=== PATIENT | female | born 1945 | race Caucasian/White ===

== ENCOUNTER 2016-11-08 16:54 | Emergency (ER) | payer MEDICARE ==
[~2016-11-08 16:54] MED LIST: ACETAMINOPHEN325 MG PO; AMITIZA8 MCG PO; ASPIRIN CHEWABL81 MG PO; BACLOFEN 20MG T20 MG PO; CARAFATE1 GM PO; CERTAGEN1 EACH PO; CETIRIZINE HCL10 MG PO; DIFLUCAN150 MG PO; FEOSOL325 MG PO; HABITROL21 MG TD; IBUPROFEN800 MG PO; KLONOPIN0.5 MG PO; LAXATIVE5 MG PO; NEURONTIN300 MG PO; PAXIL40 MG PO; PERCOCET 5-3251 EACH PO; PREDNISONE 5MG T5 MG PO; TENORMIN50 MG PO; XARELTO10 MG PO; ZANTAC150 MG PO
[2016-11-08 22:15] LABS: BASOPHIL 0.4 % (0-2); EOSINOPHIL 2.5 % (0-7); HGB 11.7 g/dl (12.5-16.0); LYMPHOCYTE 26.2 % (15-48); MCH 29.2 pg (25.0-31.0); MCHC 32.5 g/dL (32.0-36.0); MCV 89.8 fL (78.0-100.0); MONOCYTE 5.5 % (0-12); MPV 9.5 fL (6.0-9.5); NEUTROPHIL 65.4 % (41-80); PLT 385 K/uL (150-400); RBC 4.01 M/uL (4.20-5.40); RDW 14.3 % (11.5-14.0)
[2016-11-08 22:18] LABS: BILIRUBIN NEGATIVE (NEGATIVE); BLOOD TRACE-INTACT Ery/uL (NEGATIVE); CLARITY CLEAR (CLEAR); COLOR YELLOW (YELLOW); GLUCOSE (U) NORMAL (NORMAL); KETONE (U) NEGATIVE (NEGATIVE); LEUKOCYTES NEGATIVE Leu/uL (NEGATIVE); NITRITE NEGATIVE (NEGATIVE); PROTEIN NEGATIVE (NEGATIVE); SPECIFIC GRAVITY <=1.005 (1.001-1.030); UROBILINOGEN 0.2 mg/dL (0.2-1.0); pH 6.5 (5.0-9.0)
[2016-11-08 22:37] LABS: CREATININE 0.7 mg/dL (0.5-1.0)
== END 2016-11-08 23:17 | disposition home or self-care (01) ==
LOC: FER 16:54
PROVIDERS: Emergency Medicine Emergency Medical Services
DX: S22.029A Unspecified fracture of second thoracic vertebra, initial encounter for closed fracture (principal); M41.9 Scoliosis, unspecified; M47.816 Spondylosis without myelopathy or radiculopathy, lumbar region; M54.2 Cervicalgia; M25.552 Pain in left hip; I10 Essential (primary) hypertension; J45.909 Unspecified asthma, uncomplicated; J44.9 Chronic obstructive pulmonary disease, unspecified; F17.200 Nicotine dependence, unspecified, uncomplicated; Z88.0 Allergy status to penicillin; Z88.1 Allergy status to other antibiotic agents; Z79.82 Long term (current) use of aspirin; Z79.51 Long term (current) use of inhaled steroids; Z79.52 Long term (current) use of systemic steroids; Z79.899 Other long term (current) drug therapy; Z96.649 Presence of unspecified artificial hip joint; W18.39XA Other fall on same level, initial encounter; Y92.009 Unspecified place in unspecified non-institutional (private) residence as the place of occurrence of the external cause
CPT/HCPCS: 36415; 70450; 72110; 72125; 72128; 72131; 72220; 73502; 80048; 81003; 85025; J1100; J1170; J1885

== ENCOUNTER 2020-10-06 18:24 | Emergency (ER) | payer OTHER ==
[~2020-10-06 18:24] MED LIST changes: +AMLODIPINE-BEN1 EACH PO; +ANORO ELLIPTA1 EACH IN; +CLOBETASOL EMOL15 GM TOP; +CYMBALTA 30MG C30 MG PO; +DUONEB 2.5-0.5M1 AMP INH; +DUONEB 2.5-0.5M1 AMP NEB; +IMDUR 30MG TABL30 MG PO; +ISOSORBIDE MONO60 MG PO; +K-DUR20 MEQ PO; +LEVAQUIN500 MG PO; +LEVAQUIN750 MG PO; +LEVOFLOXAC750 MG/150 IV; +LEXAPRO20 MG PO; +MEDROL 4MG DOSEP4 MG PO; +METRO IV 5500 MG/100 IV; +NEURONTIN400 MG PO; +NITROQUIK SL0.4 MG SL; +NORCO 5-325 TA1 EACH PO; +PERCOCET 7.5/321 TAB PO; +PREDNISONE 20MG20 MG PO; +PREDNISONE5 MG PO; +PRILOSEC20 MG PO; +PROZAC20 MG PO; +TRAZODONE 100M100 MG PO; +TURMERIC500 M1 PO; +VENTOLIN HFA IN18 GM INH; +VITAMIN B-121000 MC1 PO; +ZPAK PO
[2020-10-06 19:32] LABS: BASOPHIL 0.8 % (0-2); EOSINOPHIL 1.1 % (0-7); HCT 37.7 % (37.0-47.0); HGB 12.2 g/dl (12.5-16.0); LYMPHOCYTE 31.7 % (15-48); MCH 30.8 pg (25.0-31.0); MCHC 32.4 g/dL (32.0-36.0); MCV 95.2 fL (78.0-100.0); MONOCYTE 4.5 % (0-12); MPV 10.3 fL (6.0-9.5); NEUTROPHIL 61.6 % (41-80); NRBC 0; PLT 320 K/uL (150-400); RBC 3.96 M/uL (4.20-5.40); RDW 14.3 % (11.5-14.0)
[2020-10-06 19:45] LABS: ALBUMIN 3.3 g/dL (3.4-5.0); BILIRUBIN - TOTAL 0.2 mg/dL (0.2-1.0); BUN/CREAT RATIO (CALC) 21.8 RATIO; CREATININE 0.78 mg/dL (0.51-0.95); GLOBULIN (CALCULATION) 2.6 g/dL; POTASSIUM 3.6 mmol/L (3.5-5.1); TOTAL PROTEIN 5.9 g/dL (6.4-8.2)
[2020-10-06 19:50] LABS: LACTIC ACID 1.8 mmol/L (0.4-1.9)
[2020-10-06 19:52] LABS: PRO-BNP 221 pg/mL (<450)
[2020-10-06 20:34] LABS: CORONAVIRUS 2019 SARS-COV-2 NEGATIVE (NEGATIVE); INFLUENZA A NAA NEGATIVE (NEGATIVE)
[2020-10-06] MEDS ORDERED: MEDROL 4MG DOSEP4 MG PO (22:36)
[2020-10-06] MEDS ORDERED: NARCAN4 MG (22:36)
[2020-10-06] MEDS ORDERED: LEVAQUIN500 MG PO (22:36)
== END 2020-10-06 22:55 | disposition home or self-care (01) ==
LOC: FER 18:24
PROVIDERS: Emergency Medicine Emergency Medical Services
DX: R07.89 Other chest pain (principal); R09.02 Hypoxemia; R42 Dizziness and giddiness; J44.9 Chronic obstructive pulmonary disease, unspecified; F17.210 Nicotine dependence, cigarettes, uncomplicated; Z87.01 Personal history of pneumonia (recurrent); Z88.1 Allergy status to other antibiotic agents; Z88.8 Allergy status to other drugs, medicaments and biological substances; Z88.0 Allergy status to penicillin; Z20.822 Contact with and (suspected) exposure to COVID-19
CPT/HCPCS: 36415; 36600; 70450; 71045; 71275; 80053; 82803; 83605; 83880; 84145; 84484; 85025; 85379; 87040; 93005; 94640; 94664; J1170; J1956; J2310; J2405; J2930; J7030; Q9967; U0002

== ENCOUNTER 2022-02-09 07:23 | Inpatient (IN) | payer MEDICARE ==
[~2022-02-09] VITALS: Ht 160 cm; Wt 81.0 kg
[~2022-02-09 07:23] MED LIST changes: -ASPIRIN CHEWABL81 MG PO; +ASPIRIN EC81 M1 PO; +KLONOPIN1 MG PO; +NARCAN4 MG
[2022-02-09 07:48] LABS: BASOPHIL 0.6 % (0-2); EOSINOPHIL 1.1 % (0-7); HCT 40.2 % (37.0-47.0); HGB 12.6 g/dl (12.5-16.0); LYMPHOCYTE 35.9 % (15-48); MCH 29.2 pg (25.0-31.0); MCHC 31.3 g/dL (32.0-36.0); MCV 93.1 fL (78.0-100.0); MONOCYTE 4.9 % (0-12); NEUTROPHIL 56.9 % (41-80); NRBC 0; PLT 281 K/uL (150-400); RBC 4.32 M/uL (4.20-5.40); RDW 14.6 % (11.5-14.0); WBC 11.3 K/uL (4.0-10.5)
[2022-02-09 07:54] LABS: INR 0.9 (0.9-1.2); PROTHROMBIN TIME 11.9 SECONDS (11.9-13.9)
[2022-02-09 08:04] LABS: ALBUMIN 3.1 g/dL (3.4-5.0); BILIRUBIN - TOTAL 0.1 mg/dL (0.2-1.0); BUN/CREAT RATIO (CALC) 12.7 RATIO; CREATININE 0.71 mg/dL (0.51-0.95); GLOBULIN (CALCULATION) 3.1 g/dL; POTASSIUM 3.1 mmol/L (3.5-5.1); TOTAL PROTEIN 6.2 g/dL (6.4-8.2)
[2022-02-09 08:58] LABS: CORONAVIRUS 2019 SARS-COV-2 NEGATIVE (NEGATIVE); INFLUENZA A NAA NEGATIVE (NEGATIVE)
[2022-02-09 10:30] LABS: BILIRUBIN NEGATIVE (NEGATIVE); BLOOD NEGATIVE Ery/uL (NEGATIVE); CLARITY CLEAR (CLEAR); COLOR YELLOW (YELLOW); GLUCOSE (U) NORMAL (NORMAL); LEUKOCYTES 1+ Leu/uL (NEGATIVE); NITRITE NEGATIVE (NEGATIVE); PROTEIN NEGATIVE (NEGATIVE); UROBILINOGEN 0.2 mg/dL (0.2-1.0); pH 6.5 (5.0-9.0)
[2022-02-09] MEDS ORDERED: ABILIFY10 MG PO (15:42)
[2022-02-09] MEDS ORDERED: SOLIFENACIN SUCC5 MG PO (15:49)
[2022-02-09] MEDS ORDERED: KLOR-CON M 1010 MEQ PO (15:49)
[2022-02-10 06:21] LABS: HCT 37.4 % (37.0-47.0); HGB 11.6 g/dl (12.5-16.0); MCV 93.5 fL (78.0-100.0); MPV 10.2 fL (6.0-9.5); RDW 14.4 % (11.5-14.0); WBC 6.5 K/uL (4.0-10.5)
[2022-02-10 07:40] LABS: BUN/CREAT RATIO (CALC) 12.2 RATIO; CREATININE 0.82 mg/dL (0.51-0.95); POTASSIUM 4.1 mmol/L (3.5-5.1)
[2022-02-11 07:01] LABS: HCT 38.2 % (37.0-47.0); MCH 29.3 pg (25.0-31.0); MCHC 31.4 g/dL (32.0-36.0); MCV 93.4 fL (78.0-100.0); MPV 10.5 fL (6.0-9.5); RBC 4.09 M/uL (4.20-5.40); RDW 13.9 % (11.5-14.0); WBC 10.3 K/uL (4.0-10.5)
[2022-02-11 07:11] LABS: INR 0.93 (0.9-1.2); PROTHROMBIN TIME 12.2 SECONDS (11.9-13.9)
[2022-02-11 07:17] LABS: IRON % SATURATION 16.8 %SAT (20-50)
[2022-02-11 07:44] LABS: BUN/CREAT RATIO (CALC) 22.8 RATIO; CREATININE 0.79 mg/dL (0.51-0.95); POTASSIUM 4.1 mmol/L (3.5-5.1)
[2022-02-12 07:39] LABS: HCT 32.1 % (37.0-47.0); HGB 10.3 g/dl (12.5-16.0); MCHC 32.1 g/dL (32.0-36.0); MCV 93.6 fL (78.0-100.0); MPV 10.2 fL (6.0-9.5); RBC 3.43 M/uL (4.20-5.40); WBC 11.6 K/uL (4.0-10.5)
[2022-02-12 07:54] LABS: BUN/CREAT RATIO (CALC) 16.1 RATIO; CREATININE 0.87 mg/dL (0.51-0.95); POTASSIUM 4.8 mmol/L (3.5-5.1)
[2022-02-13 09:39] LABS: BILIRUBIN - TOTAL 0.4 mg/dL (0.2-1.0); BUN/CREAT RATIO (CALC) 17.4 RATIO; CREATININE 0.69 mg/dL (0.51-0.95); GLOBULIN (CALCULATION) 2.8 g/dL; MAGNESIUM 1.9 mg/dL (1.8-2.4); POTASSIUM 4.2 mmol/L (3.5-5.1); TOTAL PROTEIN 4.8 g/dL (6.4-8.2)
[2022-02-15 19:23] LABS: HCT 24.7 % (37.0-47.0); MCH 29.4 pg (25.0-31.0); MCHC 32.4 g/dL (32.0-36.0); MCV 90.8 fL (78.0-100.0); MPV 10.6 fL (6.0-9.5); RBC 2.72 M/uL (4.20-5.40); RDW 14.4 % (11.5-14.0); WBC 13.7 K/uL (4.0-10.5)
[2022-02-16 08:59] LABS: BUN/CREAT RATIO (CALC) 26.7 RATIO; CREATININE 0.75 mg/dL (0.51-0.95); POTASSIUM 3.8 mmol/L (3.5-5.1)
[2022-02-17 07:43] LABS: BASOPHIL 0.6 % (0-2); EOSINOPHIL 2.6 % (0-7); HGB 8.4 g/dl (12.5-16.0); LYMPHOCYTE 22.8 % (15-48); MCH 29.9 pg (25.0-31.0); MCHC 32.3 g/dL (32.0-36.0); MCV 92.5 fL (78.0-100.0); MONOCYTE 6.8 % (0-12); MPV 10.7 fL (6.0-9.5); NEUTROPHIL 64.8 % (41-80); NRBC 0.2; PLT 330 K/uL (150-400); RBC 2.81 M/uL (4.20-5.40); RDW 14.7 % (11.5-14.0); RETICULOCYTE COUNT 3.2 % (1.0-2.0); WBC 11.7 K/uL (4.0-10.5)
[2022-02-17 07:54] LABS: IRON % SATURATION 24.1 %SAT (20-50)
[2022-02-17 08:11] LABS: INR 1.31 (0.9-1.2); PROTHROMBIN TIME 15.9 SECONDS (11.9-13.9)
[2022-02-17 08:12] LABS: PTT 37.2 SECONDS (24.9-34.6)
[2022-02-17 08:31] LABS: D-DIMER 5.92 ug/mLFEU (0.00-0.41)
[2022-02-17 08:39] LABS: ALBUMIN 2.3 g/dL (3.4-5.0); BILIRUBIN - TOTAL 0.4 mg/dL (0.2-1.0); BUN/CREAT RATIO (CALC) 16.4 RATIO; CREATININE 0.73 mg/dL (0.51-0.95); FOLIC ACID (SERUM) 29.2 ng/mL (8.6-58.9); GLOBULIN (CALCULATION) 2.8 g/dL; MAGNESIUM 1.8 mg/dL (1.8-2.4); POTASSIUM 3.6 mmol/L (3.5-5.1); TOTAL PROTEIN 5.1 g/dL (6.4-8.2)
[2022-02-17 08:45] LABS: TOTAL CELL COUNT 100
[2022-02-17 08:46] LABS: EOSINOPHIL(M) 3 % (0-7); LYMPHOCYTE(M) 13 % (15-48); MONOCYTE(M) 4 % (0-12); NEUTROPHILS(M) 70 % (41-80); VARIANT LYMPHOCYTE 10
[2022-02-17 09:06] LABS: PLATELET ESTIMATE NORMAL; PLATELET MORPHOLOGY NORMAL
[2022-02-18 09:56] LABS: HCT 25.5 % (37.0-47.0); HGB 8.2 g/dl (12.5-16.0); MCH 29.5 pg (25.0-31.0); MCHC 32.2 g/dL (32.0-36.0); MCV 91.7 fL (78.0-100.0); MPV 10.1 fL (6.0-9.5); RBC 2.78 M/uL (4.20-5.40); RDW 14.9 % (11.5-14.0); WBC 11.8 K/uL (4.0-10.5)
[2022-02-18] MEDS ORDERED: OXY-IR 5MG5 MG PO ×2 (16:34→17:50)
[2022-02-18] MEDS ORDERED: XARELTO10 MG PO (16:34)
== END 2022-02-18 17:58 | disposition home health service (06) | DRG 521 ==
LOC: FER 07:23 → FMS 09:48
PROVIDERS: Family Medicine; Internal Medicine; Legal Medicine; ADMIT Emergency Medicine
PROC: 0T9B70Z Drainage of Bladder with Drainage Device, Via Natural or Artificial Opening (ICD-10-PCS; 2022-02-09)
PROC: 0SRB04A Replacement of Left Hip Joint with Ceramic on Polyethylene Synthetic Substitute, Uncemented, Open Approach (ICD-10-PCS; principal; 2022-02-11 14:00)
DX: S72.032A Displaced midcervical fracture of left femur, initial encounter for closed fracture (principal); G92.8 Other toxic encephalopathy; T41.45XA Adverse effect of unspecified anesthetic, initial encounter; T40.605A Adverse effect of unspecified narcotics, initial encounter; J44.9 Chronic obstructive pulmonary disease, unspecified; Z20.822 Contact with and (suspected) exposure to COVID-19; W19.XXXA Unspecified fall, initial encounter; E78.5 Hyperlipidemia, unspecified; F17.210 Nicotine dependence, cigarettes, uncomplicated; Z28.311 Partially vaccinated for COVID-19; Z96.641 Presence of right artificial hip joint; Z96.651 Presence of right artificial knee joint; E87.6 Hypokalemia; I12.9 Hypertensive chronic kidney disease with stage 1 through stage 4 chronic kidney disease, or unspecified chronic kidney disease; N18.2 Chronic kidney disease, stage 2 (mild); D63.1 Anemia in chronic kidney disease; M54.16 Radiculopathy, lumbar region; E66.9 Obesity, unspecified; D50.9 Iron deficiency anemia, unspecified; I25.10 Atherosclerotic heart disease of native coronary artery without angina pectoris; K21.9 Gastro-esophageal reflux disease without esophagitis; F41.9 Anxiety disorder, unspecified; F32.A Depression, unspecified; Z88.5 Allergy status to narcotic agent; Z99.81 Dependence on supplemental oxygen; Z88.0 Allergy status to penicillin; Z88.1 Allergy status to other antibiotic agents; Z90.49 Acquired absence of other specified parts of digestive tract; Z90.710 Acquired absence of both cervix and uterus; Z98.1 Arthrodesis status; Z79.899 Other long term (current) drug therapy; Z79.82 Long term (current) use of aspirin; Z68.30 Body mass index [BMI] 30.0-30.9, adult
CPT/HCPCS: 36415; 36600; 70450; 71045; 73501; 73502; 73564; 76000; 80048; 80053; 81001; 82607; 82746; 82803; 83540; 83550; 83605; 83735; 83880; 84145; 84484; 85025; 85379; 85384; 85610; 85730; 93005; 94010; 94640; 94667; 94668; 97162; 97166; 97530; 97530-GP; 97535; C1713; C1776; J0171; J1650; J1885; J2250; J2270; J2370; J2405; J2704; J2795; J2916; J2920; J3010; J3480; J7120; J7512; U0002